=== PATIENT | female | born 1995 | race Caucasian/White ===

== ENCOUNTER 2020-11-18 16:53 | Emergency (ER) | payer OTHER, SELFPAY ==
[2020-11-18 17:06] VITALS: BP 149/75; PULSE 86; RESP 16; TEMP 37.1; O2SAT 98; BMI 29.1
--- NOTE | 2020-11-18 17:20 | ED_ITS ---
HPI - General Adult General Chief complaint: General Medical Stated complaint: covid symptoms Time Seen by Provider: 11/18/20 16:55 History of Present Illness HPI narrative: Complains of 2 days of dry cough, runny nose, body aches fatigue, no shortness of breath no nausea no vomiting, no sore throat Related Data Allergies Allergy/AdvReac Type Severity Reaction Status Date / Time No Known Allergies Allergy Verified 11/18/20 16:55 Review of Systems Review of Systems: Positive for dry cough runny nose body aches and fatigue No fever no chills no confusion no weakness no chest pain no shortness of breath no sore throat no difficulty swallowing no nausea no vomiting no abdominal pain no rash Yes all other systems are reviewed and are negative [facility] Past Medical History Attestation statement: The following information was validated with the patient. [facility] Narrative: No relevant medical history, does not smoke Social History Social History Smoked in Last 30 Days: No Advance Directives: No Advance Directives Information Provided: Yes Physical Exam Vital Signs: Vital Signs: Last Vital Signs Temp 98.8 F 11/18/20 17:06 Pulse 86 11/18/20 17:06 Resp 16 11/18/20 17:06 BP 149/75 H 11/18/20 17:06 Pulse Ox 98 11/18/20 17:06 Body Mass Index 29.1 General appearance comfortable no distress relaxed and cooperative Pharynx is clear Neck is supple Chest is clear to auscultation bilaterally with symmetric breath sounds no respiratory distress No rash Extremities full range of motion x4 Course Course Course Narrative: Patient with symptoms suspicious for COVID is tested and discharged, well-appearing at this time Medical Decision Making Lab Data Labs: Lab Results 11/18/20 Range/Units 17:14 COVID-19 ([facility]ANDA) Negative (Negative) COVID-19 Clin Com See Note Discharge Plan Discharge Clinical Impression: Acute viral syndrome Patient Disposition: Home, Self-Care Additional Instructions: RETURN ANY TIME ANY WORSE CONDITION OR CONCERNS Interventions: ED Discharge Assessment Last Done: 11/18/20 17:26 Discharge Date/Time: 11/18/20 17:27
[2020-11-18 17:35] LABS: IDNOW Serial# 9DD0AD1C
[2020-11-18 17:36] LABS: COVID-19 Test Negative (Negative)
== END 2020-11-18 17:27 | disposition home or self-care (01) ==
PROVIDERS: Physician Assistant Medical; Emergency Provider Emergency Medicine
DX: B34.9 Viral infection, unspecified (principal); Z20.828 Contact with and (suspected) exposure to other viral communicable diseases
CPT/HCPCS: 87635; 99283; 99284